=== PATIENT | male | born 1965 | race Hispanic/Latino ===

== ENCOUNTER 2019-03-28 19:32 | Emergency (ER) | payer OTHER ==
--- NOTE | 2019-03-28 21:00 | Event Note ---
ED Screening Note Date of service: 03/28/19 Time: 20:59 ED Screening Note: Pt complains of right groin pain and bulge x today states bulge reduced This initial assessment/diagnostic orders/clinical plan/treatment(s) is/are subject to change based on patients health status, clinical progression and re- assessment by fellow clinical providers in the ED. Further treatment and workup at subsequent clinical providers discretion. Patient/guardian urged not to elope from the ED as their condition may be serious if not clinically assessed and managed. Initial orders include: CT labs
[2019-03-28 21:32] LABS: Bilirubin,Urine NEG (Negative); Blood,Urine NEG (Negative); Color,Urine Straw (Yellow); Mucus,Urine FEW /HPF; Protein,Urine <15 mg/dL mg/dL (Negative); Urobilinogen,Urine < 2.0 mg/dL (<2.0); WBC,Urine < 1.0 /HPF (0.0-6.0)
[2019-03-28 21:38] LABS: Basophils # (Auto) 0.1 K/mm3 (0.0-0.1); Basophils % (Auto) 0.9 % (0.0-1.8); Eosinophils % (Auto) 0.4 % (0.0-4.3); Hematocrit 44.8 % (35.5-45.6); Hemoglobin 15.6 gm/dl (11.8-15.2); Lymphocytes # (Auto) 1.2 K/mm3 (1.2-5.4); Lymphocytes % (Auto) 16.7 % (13.4-35.0); Mean Corpuscular HGB Conc 35 % (32-34); Mean Corpuscular Volume 92 fl (84-94); Monocytes # (Auto) 0.4 K/mm3 (0.0-0.8); Monocytes % (Auto) 6.2 % (0.0-7.3); Platelet Count 254 K/mm3 (140-440); Red Blood Count 4.86 M/mm3 (3.65-5.03); Red Cell Distribution Width 13.9 % (13.2-15.2)
[2019-03-28 22:04] LABS: Alanine Aminotransferase 11 units/L (7-56); Albumin 4.5 g/dL (3.9-5); BUN/Creatinine Ratio 7; Blood Urea Nitrogen 6 mg/dL (9-20); Calcium 9.5 mg/dL (8.4-10.2); Hemolysis Index 12
--- NOTE | 2019-03-29 00:36 | Cat Scan Report ---
CT ABDOMEN AND PELVIS WITH IV CONTRAST INDICATION: abdominal pain, right groin pain and bulge. COMPARISON: None available. TECHNIQUE: All CT scans at this facility use dose modulation, automated exposure control, iterative reconstructi on or weight based dosing, when appropriate, to reduce radiation dose to as low as reasonably achieva ble. FINDINGS: Lung Bases: No significant abnormality. Skeletal System: No acute abnormality. ABDOMEN: Liver: No significant abnormality. Gallbladder: Removed. Bile Ducts: No significant abnormality. Pancreas: No significant abnormality. Spleen: No significant abnormality. Adrenals: No significant abnormality. Right Kidney: No significant abnormality. Left Kidney: There is a cyst in the medial cortex with layering calcification, this is likely milk of calcium (axial image 63). Left kidney is otherwise unremarkable. Upper GI tract: Stomach and duodenum are unremarkable. Scattered mildly distended fluid-filled loops of small bowel are noted. Lymph Nodes: No significant adenopathy. Aorta: No significant abnormality. Additional Findings: No significant abnormality. PELVIS: Colon: No acute abnormality. Urinary Bladder and Distal Ureters: No significant abnormality. Appendix: No significant abnormality. Lymph Nodes: No significant adenopathy. Additional Findings: There is a small fat-containing right groin hernia. IMPRESSION: 1. Small fat-containing right groin hernia. 2. Scattered fluid-filled mildly distended loops of small bowel could be seen in the setting of ente ritis. Correlate clinically. 3. Additional incidental findings as above. Signer Name: Ilir Richey MD Signed: 03/29/2019 12:31 AM Workstation Name: [email or web address]
[2019-03-29] MEDS ORDERED: ACETAMINOPHEN 500 MG TAB ONE (01:13)
--- NOTE | 2019-03-29 01:14 | Emergency Department Report ---
ED General Adult HPI - General Chief complaint: Abdominal Pain Stated complaint: ABD PAIN/ WORK INJURY/RIGHT SIDE Time Seen by Provider: 03/28/19 20:58 Source: patient Mode of arrival: Ambulatory Limitations: No Limitations - History of Present Illness Initial comments: During the entire history and physical examination, I am nurse private duty and escorted by nurse Nancy Kim Patient is a 54-year-old gentleman who is not known to this provider previously. He presents to the ER with complaints of strained groin muscle, concerned that he has a right-sided hernia, and pulled abdominal wall muscle. 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 He was in his usual state of health yesterday, when he twisted to the side and performs heavy lifting on the tire machine, and he felt like he had a bulge in his right groin, and pull in his right groin, and right- sided abdominal wall. He has mild discomfort, which is resolved at this time, pain increases with palpation, twisting, range of motion, decreases with rest. At the moment, denies headache, neck pain, nausea, vomiting, denies irritative and/or obstructive urinary symptoms, and denies testicular pain. He came here mostly because his boss wanted him to have medical evaluation, and he was unable to secure an evaluation at an outside urgent care center. -: Sudden Location: abdomen, right Radiation: other Quality: other Consistency: other Improves with: other Worsens with: other Associated Symptoms: other - Related Data Previous Rx's Medication Instructions Recorded Last Taken Type Acetaminophen [Non-Aspirin Extra 500 mg PO Q6HR PRN #30 tablet 03/29/19 Unknown Rx Strength] Ibuprofen [Motrin] 600 mg PO Q8H PRN #30 tablet 03/29/19 Unknown Rx Ondansetron [Zofran Odt] 4 mg PO Q8HR PRN #20 tab.rapdis 03/29/19 Unknown Rx Allergies Allergy/AdvReac Type Severity Reaction Status Date / Time No Known Allergies Allergy Verified 03/29/19 01:15 ED Review of Systems ROS: Stated complaint: ABD PAIN/ WORK INJURY/RIGHT SIDE Other details as noted in HPI Constitutional: denies: fever Eyes: denies: eye discharge ENT: denies: congestion Respiratory: denies: wheezing Cardiovascular: denies: syncope Gastrointestinal: abdominal pain Genitourinary: denies: dysuria, testicular pain Musculoskeletal: myalgia Neurological: denies: weakness Hematological/Lymphatic: denies: easy bleeding ED Past Medical Hx - Past Medical History Previous Medical History?: No - Surgical History Past Surgical History?: No - Social History Smoking Status: Current Every Day Smoker - Medications Home Medications: Home Medications Medication Instructions Recorded Confirmed Last Taken Type Acetaminophen [Non-Aspirin Extra 500 mg PO Q6HR PRN #30 tablet 03/29/19 Unknown Rx Strength] Ibuprofen [Motrin] 600 mg PO Q8H PRN #30 tablet 03/29/19 Unknown Rx Ondansetron [Zofran Odt] 4 mg PO Q8HR PRN #20 tab.rapdis 03/29/19 Unknown Rx ED Physical Exam - General Limitations: No Limitations General appearance: alert, in no apparent distress - Head Head exam: Present: atraumatic, normocephalic - Eye Eye exam: Present: normal appearance, EOMI. Absent: nystagmus - ENT ENT exam: Present: normal exam, normal orophraynx, mucous membranes moist, normal external ear exam - Neck Neck exam: Present: normal inspection, full ROM. Absent: tenderness, meningismus - Respiratory Respiratory exam: Present: normal lung sounds bilaterally. Absent: respiratory distress - Cardiovascular Cardiovascular Exam: Present: regular rate, normal rhythm, normal heart sounds. Absent: bradycardia, tachycardia, irregular rhythm, systolic murmur, diastolic murmur, rubs, gallop - GI/Abdominal GI/Abdominal exam: Present: soft, tenderness, normal bowel sounds, hernia, other (chaperoned by nurse Nancy Moreno. There is suprapubic and right-sided abdominal tenderness. There is negative Rovsing sign. There is a right-sided inguinal hernia. It is reducible.). Absent: distended, guarding, rebound, rigid - Rectal Rectal exam: Present: deferred - exam: Present: other (there is no testicular tenderness. There is normal testicular lie. There is a normal cremasteric reflex noted bilaterally. Chaperoned by nurse Nancy Moreno). Absent: testicular tenderness - Extremities Exam Extremities exam: Present: normal inspection, full ROM, other (2+ pulses noted in the bilateral upper and lower extremities. There is no long bony tenderness. The muscular compartments are soft. The pelvis is stable.). Absent: pedal edema, calf tenderness - Back Exam Back exam: Present: normal inspection, full ROM. Absent: tenderness, CVA tenderness (R), CVA tenderness (L), paraspinal tenderness, vertebral tenderness - Neurological Exam Neurological exam: Present: alert, normal gait, other (there is no facial droop. The tongue is midline. The extraocular movements are intact bilaterally. Moving 4 extremities spontaneously. Sensation is intact to light touch in 4 extremities spontaneously. Age-appropriate mental status.). Absent: motor sensory deficit - Psychiatric Psychiatric exam: Present: normal affect, normal mood - Skin Skin exam: Present: warm, dry, intact, normal color. Absent: rash ED Course Vital Signs 03/28/19 03/29/19 19:50 01:16 Temperature 98.9 F Pulse Rate 76 82 Respiratory 18 16 Rate Blood Pressure 138/81 Blood Pressure 125/78 [Left] O2 Sat by Pulse 98 99 Oximetry ED Medical Decision Making - Lab Data Result diagrams: 03/28/19 21:24 03/28/19 21:24 Vital Signs 03/28/19 03/29/19 19:50 01:16 Temperature 98.9 F Pulse Rate 76 82 Respiratory 18 16 Rate Blood Pressure 138/81 Blood Pressure 125/78 [Left] O2 Sat by Pulse 98 99 Oximetry Lab Results 03/28/19 03/28/19 03/28/19 Range/Units 21:20 21:24 21:24 WBC 7.0 (4.5-11.0) K/mm3 RBC 4.86 (3.65-5.03) M/mm3 Hgb 15.6 H (11.8-15.2) gm/dl Hct 44.8 (35.5-45.6) % MCV 92 (84-94) fl MCH 32 (28-32) pg MCHC 35 H (32-34) % RDW 13.9 (13.2-15.2) % Plt Count 254 (140-440) K/mm3 Lymph % (Auto) 16.7 (13.4-35.0) % [place] % (Auto) 6.2 (0.0-7.3) % Eos % (Auto) 0.4 (0.0-4.3) % Baso % (Auto) 0.9 (0.0-1.8) % Lymph # 1.2 (1.2-5.4) K/mm3 [place] # 0.4 (0.0-0.8) K/mm3 Eos # 0.0 (0.0-0.4) K/mm3 Baso # 0.1 (0.0-0.1) K/mm3 Seg Neutrophils % 75.8 H (40.0-70.0) % Seg Neutrophils # 5.3 (1.8-7.7) K/mm3 Sodium 139 (137-145) mmol/L Potassium 4.0 (3.6-5.0) mmol/L Chloride 103.4 (98-107) mmol/L Carbon Dioxide 22 (22-30) mmol/L Anion Gap 18 mmol/L BUN 6 L (9-20) mg/dL Creatinine 0.9 (0.8-1.5) mg/dL Estimated GFR > 60 ml/min BUN/Creatinine Ratio 7 % Glucose 82 (75-100) mg/dL Calcium 9.5 (8.4-10.2) mg/dL Total Bilirubin 0.40 (0.1-1.2) mg/dL AST 15 (5-40) units/L ALT 11 (7-56) units/L Alkaline Phosphatase 48 (35-129) units/L Total Protein 7.3 (6.3-8.2) g/dL Albumin 4.5 (3.9-5) g/dL Albumin/Globulin Ratio 1.6 % Lipase 48 (13-60) units/L Urine Color Straw (Yellow) Urine Turbidity Clear (Clear) Urine pH 6.0 (5.0-7.0) Ur Specific [place] 1.003 (1.003-1.030) Urine Protein <15 mg/dl (Negative) mg/dL Urine Glucose (UA) Neg (Negative) mg/dL Urine Ketones Neg (Negative) mg/dL Urine Blood Neg (Negative) Urine Nitrite Neg (Negative) Urine Bilirubin Neg (Negative) Urine Urobilinogen < 2.0 (<2.0) mg/dL Ur Leukocyte Esterase Neg (Negative) Urine WBC (Auto) < 1.0 (0.0-6.0) /HPF Urine RBC (Auto) 1.0 (0.0-6.0) /HPF Urine Mucus Few /HPF - Radiology Data Radiology results: report reviewed, image reviewed Print Report Referring Physician: GWYN MAURICIO Patient Name: RUBY AYALA Date of : 1965 Sex: Male Report Date: 2019-03-29 Report Status: Finalized Findings [facility] [address] [place] [address] Cat Scan Report Signed Patient: RUBY AYALA MR#: [id number] : 1965 Acct:[id number] Age/Sex: 54 / M ADM Date: 03/28/19 Loc: ED Attending Dr: Ordering Physician: GWYN MAURICIO Date of Service: 03/28/19 Procedure(s): CT abdomen pelvis w con Accession Number(s): [id number] cc: GWYN MAURICIO CT ABDOMEN AND PELVIS WITH IV CONTRAST INDICATION: abdominal pain, right groin pain and bulge. COMPARISON: None available. TECHNIQUE: All CT scans at this facility use dose modulation, automated exposure control, iterative reconstruction or weight based dosing, when appropriate, to reduce radiation dose to as low as reasonably achievable. FINDINGS: Lung Bases: No significant abnormality. Skeletal System: No acute abnormality. ABDOMEN: Liver: No significant abnormality. Gallbladder: Removed. Bile Ducts: No significant abnormality. Pancreas: No significant abnormality. Spleen: No significant abnormality. Adrenals: No significant abnormality. Right Kidney: No significant abnormality. Left Kidney: There is a cyst in the medial cortex with layering calcification, this is likely milk of calcium (axial image 63). Left kidney is otherwise unremarkable. Upper GI tract: Stomach and duodenum are unremarkable. Scattered mildly distended fluid-filled loops of small bowel are noted. Lymph Nodes: No significant adenopathy. Aorta: No significant abnormality. Additional Findings: No significant abnormality. PELVIS: Colon: No acute abnormality. Urinary Bladder and Distal Ureters: No significant abnormality. Appendix: No significant abnormality. Lymph Nodes: No significant adenopathy. Additional Findings: There is a small fat-containing right groin hernia. IMPRESSION: 1. Small fat-containing right groin hernia. 2. Scattered fluid-filled mildly distended loops of small bowel could be seen in the setting of enteritis. Correlate clinically. 3. Additional incidental findings as above. Signer Name: Ilir Richey MD Signed: 03/29/2019 12:31 AM Workstation Name: [id number] Transcribed By: FLORENCE Dictated By: Ilir Richey MD Electronically Authenticated By: Ilir Richey MD Signed Date/Time: 03/29/19 003 DD/ 0026 TD/TT: - Medical Decision Making Differential diagnosis, including but not limited to: Hernia, muscular strain Assessment and plan: 54-year-old gentleman who does a lot of heavy lifting for work, presenting with right-sided groin strain, muscular pain, and right-sided inguinal hernia after heavy lifting and twisting. He is not obstructed. He is afebrile with reassuring vital signs. He felt improved after Tylenol. Screening laboratory studies and CT scan were ordered prior to my personal evaluation. Patient is counseled to rest, avoid heavy lifting and strenuous physical activities, he will need to wear supportive briefs, supportive shorts, and he'll need to follow up with outpatient general surgeon. Discussed this extensively with the patient, who verbalizes understanding. Return precautions are reviewed. Critical care attestation.: If time is entered above; I have spent that time in minutes in the direct care o f this critically ill patient, excluding procedure time. ED Disposition Clinical Impression: Inguinal hernia of right side without obstruction or gangrene Disposition: - TO HOME OR SELFCARE Is pt being admited?: No Does the pt Need Aspirin: No Condition: Stable Instructions: Inguinal Hernia (ED) Additional Instructions: Rest, avoid heavy lifting, and avoid strenuous physical activities. Patient s hould perform work-related tasks in the light duty capacity. He should avoid heavy lifting, and twisting movement and range of motion, until he feels better, or until cleared to do so by either her primary care doctor or general surgeon. Patient may take Tylenol, 650 mg by mouth, every 4-6 hours as new for pain, alternating with Motrin, 600 mg by mouth, with food, every 6 hours as needed for pain. Recommend that patient wear supportive undergarments/underwear, and supportive compression surge, as we discussed. Recommend follow-up with an outpatient general surgeon within the next week. Recommend the patient return to the emergency room right away with new, worsening or different symptoms, or symptoms not present on the initial emergency room evaluation. Referrals: JOO DRUMMOND MD [Staff Physician] - 3-5 Days MARCO A CAROLINA DO [Staff Physician] - 3-5 Days CHERYL RIOS MD [Staff Physician] - 3-5 Days Forms: Work/School Release Form(ED)
[2019-03-29 01:16] VITALS: BP 125/78
[2019-03-29] MEDS ORDERED: ACETAMINOPHEN 500 MG TAB PO ONE (02:20)
== END 2019-03-29 02:20 | disposition home or self-care (01) ==
LOC: ED 19:32
DX: K40.90 Unilateral inguinal hernia, without obstruction or gangrene, not specified as recurrent (principal); F17.200 Nicotine dependence, unspecified, uncomplicated
CPT/HCPCS: 36415; 74177; 80053; 81001; 83690; 85025; 99284; Q9967